=== PATIENT | female | born 1980 | race African-American/Black ===

== ENCOUNTER 2018-04-15 12:47 | Emergency (ER) | payer OTHER ==
[~2018-04-15] VITALS: Ht 170.2 cm; Wt 72.6 kg
--- NOTE | 2018-04-15 13:16 | ED GI/GU/ABDOMINAL COMPLAINT ---
See Addendum History of Present Illness General Chief Complaint: Abdominal Pain/Flank Pain Stated Complaint: ABD PAIN Source: patient Exam Limitations: no limitations Vital Signs & Intake/Output Vital Signs & Intake/Output Vital Signs Date Time Temp Pulse Resp B/P B/P Pulse O2 O2 Flow FiO2 Mean Ox Delivery Rate 04/15 1412 97.7 61 20 127/72 100 Room Air 04/15 1254 97.2 58 20 119/72 98 Room Air Allergies Coded Allergies: NO KNOWN ALLERGIES (01/31/14) Reconcile Medications Cephalexin (Keflex) 500 MG CAPSULE 1 CAP PO BID uti Triage Note: LOWER ABDOMINAL/PELVIC PAIN THAT RADIATES INTO HER BACK STARTING LAST WEEK. PT THOUGHT IT WAS FOOD POISONING BECAUSE IT CAME ON SO QUICK. STATES N/V/D. SYMPTOMS WENT AWAY ON FRIDAY, FINE FRIDAY AND FRIDAY BUT THEN FRIDAY NIGHT ALL THE SYMPTOMS CAME BACK AGAIN Triage Nurses Notes Reviewed? yes ? N Is pt currently ? No Onset: Gradual Duration: day(s): Timing: recent history Quality/Severity: moderate Location: LOWER ABDOMEN Radiation: BACK HPI: 38-year-old female presents emergency department complaining of lower abdominal pain worsening last night. Patient states she had a similar pain last week which she associated with food poisoning as she had had jocelyn food the day before. At that time patient also had nonbloody vomiting and nonbloody diarrhea. Patient's symptoms resolved however last night her abdominal pain returned in same location. Patient describes abdominal pain as lower abdomen radiating toward her back. Patient reports dysuria about a week ago which she took or the counter meds for which resolved. Patient denies fevers, chills, sick contacts, vaginal discharge. She denies new sexual partners. (Francoise Navas) Past History Travel History Traveled to [place] past 21 day No Medical History Any Pertinent Medical History? none Surgical History Surgical History: non-contributory Psychosocial History What is your primary language Danish Tobacco Use: Never used ETOH Use: occasional use Illicit Drug Use: denies illicit drug use Family History Hx Contributory? No (Francoise Navas) Review of Systems Review of Systems Constitutional: Reports: no symptoms. EENTM: Reports: no symptoms. Respiratory: Reports: no symptoms. Cardiovascular: Reports: no symptoms. GI: Reports: see HPI. Genitourinary: Reports: see HPI. Musculoskeletal: Reports: no symptoms. Skin: Reports: no symptoms. Neurological/Psychological: Reports: no symptoms. Hematologic/Endocrine: Reports: no symptoms. Immunologic/Allergic: Reports: no symptoms. All Other Systems: Reviewed and Negative (Minoo HERNANDEZ,Francoise Mckeon) Physical Exam Physical Exam General Appearance: well developed/nourished, no apparent distress, alert, awake Head: atraumatic, normal appearance Eyes: Bilateral: normal appearance. Ears, Nose, Throat, Mouth: hearing grossly normal Neck: normal inspection, supple, full range of motion Respiratory: normal breath sounds, no respiratory distress, lungs clear Cardiovascular: regular rate/rhythm Gastrointestinal: normal bowel sounds, soft, no organomegaly, generalized tenderness through out abdominal exam without rebound or gaurding Back: normal inspection, normal range of motion, no CVA tenderness Extremities: normal range of motion Neurologic/Psych: awake, alert, oriented x 3 Skin: intact, normal color, warm/dry Core Measures ACS in differential dx? No Sepsis Present: No Sepsis Focused Exam Completed? No (Minoo HERNANDEZ,Francoise Mckeon) Progress Differential Diagnosis: appendicitis, diverticulitis, gastritis, hernia, inflamm bowel dis, intrauterine , kidney stone, PID/cervicitis, PUD/GERD, SBO, UTI/pyelo Plan of Care: Orders Procedure Date/time Status LIPASE 04/15 1315 Complete HUMAN BETA HCG SCREEN 04/15 1315 Complete COMPREHENSIVE METABOLIC PANEL 04/15 1315 Complete CBC WITHOUT DIFFERENTIAL 04/15 1315 Complete AMYLASE 04/15 1315 Complete URINALYSIS 04/15 1302 Complete Laboratory Tests 04/15/18 1330: Anion Gap 8, Estimated GFR > 60, BUN/Creatinine Ratio 12.9, Glucose 83, Calcium 9.2, Total Bilirubin 0.8, AST 13 L, ALT 21, Alkaline Phosphatase 39, Total Protein 7.2, Albumin 3.8, Globulin 3.4, Albumin/Globulin Ratio 1.1, Amylase 107, Lipase 131, Total Beta HCG NEGATIVE, CBC w Diff NO MAN DIFF REQ, RBC 4.32, MCV 86.4, MCH 28.3, MCHC 32.8 L, RDW 14.3, MPV 9.8, Gran % 61.7, Lymphocytes % 30.2 , Monocytes % 7.2, Eosinophils % 0.6, Basophils % 0.3, Absolute Granulocytes 3.6 , Absolute Lymphocytes 1.8, Absolute Monocytes 0.4, Absolute Eosinophils 0, Absolute Basophils 0 04/15/18 1304: Urine Color YEL, Urine Clarity CLEAR, Urine pH 6.0, Ur Specific Estill 1.015, Urine Protein TRACE H, Urine Ketones NEG, Urine Nitrite NEG, Urine Bilirubin NEG, Urine Urobilinogen 0.2, Ur Leukocyte Esterase MOD H, Ur Microscopic SEDIMENT EXAMINED, Urine RBC 3-5, Urine WBC 10-15 H, Ur Epithelial Cells FEW, Urine Bacteria FEW H, Urine Mucus FEW, Urine Hemoglobin SMALL H, Urine Glucose NEG Patient's urine shows evidence of UTI. Patient's labs are stable, no acute abnormality. Versus benefits to CT imaging were discussed with the patient and she elected to proceed with CT scan of abdomen and pelvis. CT scan is pending. The patient was signed out to DAVID Puga pending CT scan. (Francoise Navas) Please note that I (LUCITA PUGA PA-C) did not evaluate this patient CT scan was resulted in which the initial provider discharge the patient (Lucita Salguero) Initial ED EKG: none Hand-Off Endorsed To: Lucita Salguero Endorsed Time: 1517 Pending: CT (Francoise Navas) Departure Departure Disposition: HOME OR SELF CARE Condition: Stable Clinical Impression Primary Impression: UTI (urinary tract infection) Qualifiers: Urinary tract infection type: acute cystitis Hematuria presence: without hematuria Qualified Code: N30.00 - Acute cystitis without hematuria Secondary Impressions: Abdominal pain Qualifiers: Abdominal location: lower abdomen, unspecified Qualified Code: R10.30 - Lower abdominal pain, unspecified Referrals: Giovanna HOGAN,Raul Singh (PCP/Family) Additional Instructions: Take full course of antibiotics. Follow-up with her primary care doctor. Return if worsening symptoms or concerns. Please note that there might be incidental findings in your evaluation that are unrelated to the current emergency department visit. Please notify your primary care doctor about this emergency department visit in order to obtain and review all of the testing performed so that these incidental findings can be monitored as needed. If you had an x-ray performed, please understand that some fractures may not be seen on the initial set of x-rays. If your symptoms persist you might need a repeat set of x-rays to check for such a fracture. If you had a laceration evaluated, please understand that foreign bodies such as glass or wood may not be visible to the naked eye or on plain x-rays. If the wound becomes red, swollen, increasingly more painful or if there is any drainage from the wound, please have it reevaluated by a physician for the possibility of a retained foreign body. If you're unable to follow up as outlined in the discharge instructions please return to the emergency department. Thank you for choosing the [facility] Emergency Department for your care. It was a pleasure to serve you today. Departure Forms: Customer Survey General Discharge Information Prescriptions: Current Visit Scripts Cephalexin (Keflex) 1 CAP PO BID #[id number] CAP (Minoo HERNANDEZ,Francoise Mckeon)
[2018-04-15 14:12] VITALS: BP 127/72
[2018-04-15 14:14] LABS: ABSOLUTE BASOPHIL COUNT 0 /CUMM (0.0-0.2); ABSOLUTE EOSINOPHIL COUNT 0 /CUMM (0.0-0.7); ABSOLUTE GRANULOCYTE CT 3.6 /CUMM (1.4-6.5); ABSOLUTE LYMPH COUNT 1.8 /CUMM (1.2-3.4); ABSOLUTE MONOCYTE COUNT 0.4 /CUMM (0.10-0.60); BASOPHIL % 0.3 % (0.0-2.0); EOSINOPHIL % 0.6 % (0-5); GRANULOCYTE % 61.7 % (42.2-75.2); HEMATOCRIT 37.3 % (37-47); MEAN CORPUSCULAR HGB 28.3 PG (27.0-31.0); MEAN CORPUSCULAR HGB CONC 32.8 G/DL (33.0-37.0); MEAN CORPUSCULAR VOLUME 86.4 FL (81.0-99.0); MEAN PLATELET VOLUME 9.8 FL (7.4-10.4); PLATELET COUNT 257 /CUMM (130-400); RBC DISTRIBUTION WIDTH 14.3 % (11.5-14.5); RED BLOOD CELL CT 4.32 /CUMM (4.20-5.40); WHITE BLOOD CELL COUNT 5.8 /CUMM (4.8-10.8)
[2018-04-15] MEDS ORDERED: KEFLEX500 M1 PO (16:02)
--- NOTE | 2018-04-15 16:16 | CT SCAN REPORT ---
EXAMINATION: CT ABDOMEN AND PELVIS WITH CONTRAST CLINICAL INFORMATION: Lower abdominal pain and dysuria. Evaluate for colitis, appendicitis, pyelonephritis. COMPARISON: None TECHNIQUE: Multidetector volumetric imaging was performed of the abdomen and pelvis following IV administration of 95 mL of Optiray 320 intravenous contrast. Sagittal and coronal reformatted images were obtained on the technologist's workstation. DLP: 287 mGy-cm FINDINGS: Visualized lung bases demonstrate mild dependent atelectasis. The liver demonstrates normal size, contour and attenuation. No intrahepatic biliary ductal dilatation. The gallbladder is normal in appearance. The pancreas, spleen and adrenal glands are unremarkable. Small inferior splenule. The kidneys demonstrate symmetric enhancement. No nephrolithiasis or hydronephrosis. Normal caliber loops of small and large bowel. Normal appendix. The bladder is well-distended and normal in appearance. IUD is present within an otherwise unremarkable appearing uterus. Small amount of free pelvic fluid is likely physiologic. No acute osseous abnormality IMPRESSION: No CT evidence for acute abnormality within the abdomen or pelvis. An IUD is present within the uterus.
== END 2018-04-15 16:22 ==
LOC: ERH 12:47
PROVIDERS: Physician Assistant
DX: N39.0 Urinary tract infection, site not specified (principal); R10.30 Lower abdominal pain, unspecified
CPT/HCPCS: 74177; 81001